=== PATIENT | female | born 1950 | race Two or more races ===

== ENCOUNTER 2017-05-14 11:17 | Emergency (ER) | payer OTHER, MEDICAID ==
[~2017-05-14] VITALS: Ht 152.4 cm; Wt 63.5 kg
[2017-05-14 14:13] VITALS: BP 124/61
[2017-05-14] MEDS ORDERED: KETOROLAC TROMETH 60MG/2ML VIAL IM ONE (14:30)
== END 2017-05-14 15:42 | disposition home or self-care (01) ==
LOC: ER 11:17
DX: M54.42 Lumbago with sciatica, left side (principal); M54.41 Lumbago with sciatica, right side; G89.29 Other chronic pain
CPT/HCPCS: 96372; 99283; J1885